=== PATIENT | male | born 1985 | race Caucasian/White ===

== ENCOUNTER 2018-04-22 09:56 | Emergency (ER) | payer OTHER ==
[~2018-04-22 09:56] MED LIST: ISOVUE-370 76%-LOCM 1 ML ONE
[2018-04-22] MEDS ORDERED: Ketorolac Tromethamine 30 MG/ML VIAL ONE (11:12)
--- NOTE | 2018-04-22 11:27 | ULT ---
TESTICULAR ULTRASOUND: DATE: 04/22/18. HISTORY: Right testicular pain and swelling for 1 day. FINDINGS: The testicles demonstrate a normal sonographic appearance bilaterally with homogeneous echotexture. No testicular mass is seen. The right testicle measures 4 cm x 2 cm x 1.2 cm with the left testicle m easuring 4.3 cm x 2.2 cm x 3.2 cm. Doppler evaluation of each testicle with spectral analysis and color flow evaluation does demonstrate arterial flow in each testicle. The epididymes demonstrate a normal sonographic appearance bilaterally. A tiny amount of fluid is seen adjacent to each testicle, which is likely physiologic in origin. There are a few borderline serpiginous anechoic areas seen adjacent to the right scrotum which is in the focal region of patient's pain. Color flow evaluation does demonstrate flow in these tubular str uctures and upon Valsalva maneuver, there is significantly increased asymmetric flow compared to the left side. Findings may represent a right-sided varicocele. IMPRESSION: 1. Questionable small right-sided varicocele. This would be abnormal, and further imaging with CT a bdomen and pelvis is suggested with IV contrast. 2. Normal-appearing bilateral testicles with arterial flow documented in each testicle. POS: [facility] [place]
[2018-04-22 11:35] LABS: #Basophils 0.1 thou/uL (0.0-0.2); #Eosinphils 0.2 thou/uL (0.0-0.7); #Lymphocytes 1.7 thou/uL (1.20-3.40); #Monocytes 0.6 thou/uL (0.11-0.59); #Neutrophils 6.5 thou/uL (1.40-6.50); %Basophils 0.7 % (0.0-1.0); %Eosinophils 2.1 % (0.0-10.0); %Lymphocytes 18.9 % (21.0-51.0); %Monocytes 6.3 % (0.0-10.0); Hemoglobin 15.5 g/dL (14.0-18.0); Mean Corpuscular HGB CONC 34.3 g/dL (32.0-36.0); Mean Corpuscular Hemoglobin 31.6 pg (27.0-31.0); Mean Corpuscular Volume 92.2 fL (78.0-98.0); Mean Platelet Volume 7.4 fL (7.4-10.4); Platelet Count 303 thou/uL (130-400); RBC Distribution Width 11.3 % (11.5-14.5); Red Blood Cell (RBC) Count 4.89 mill/uL (4.70-6.10)
[2018-04-22 11:56] LABS: ALT (SGPT) 33 U/L (8-55); AST (SGOT) 23 U/L (5-34); Albumin 4.4 g/dL (3.5-5.0); Alkaline Phosphatase 120 U/L (40-150); Anion Gap 12 mmol/L (10-20); BUN (Urea Nitrogen) 18 mg/dL (8.9-20.6); Bilirubin, Total 0.4 mg/dL (0.2-1.2); Calc. Creatinine Clearance 0 mL/min (70-130); Calcium 9.2 mg/dL (7.8-10.44); Carbon Dioxide 23 mmol/L (22-29); Chloride 108 mmol/L (98-107); Estimated GFR-MDRD Greater than 90; Globulin 2.9 g/dL (2.4-3.5); Glucose 101 mg/dL (70-105); Potassium 4.2 mmol/L (3.5-5.1); Protein, Total 7.3 g/dL (6.0-8.3); Sodium 139 mmol/L (136-145)
[2018-04-22 12:10] LABS: Bilirubin Negative (Negative); Blood, Urine Negative (Negative); Clarity CLEAR (Clear); Glucose, Urine (Dipstick) Negative (Negative); Leukocyte Negative (Negative); Nitrite Negative (Negative); Protein, Urine (Dipstick) Negative (Neg-Trace); Specific Gravity, Urine 1.026 (1.002-1.036); Urobilinogen 0.2 mg/dL (0.2-1.0); pH, Urine 6.5 (5.0-9.0)
[2018-04-22] MEDS ORDERED: Acetaminophen 500 MG TAB ONE (13:22)
--- NOTE | 2018-04-22 13:36 | CT ---
CT ABDOMEN AND PELVIS WITH IV CONTRAST: Date: 04/22/18 HISTORY: Testicular swelling with onset of symptoms last night. No pain. Pain started this morning on the righ t side of the scrotum. Ultrasound examination questioned the possibility of a right-sided hydrocele. COMPARISON: Noncontrast CT abdomen and pelvis on 09/05/14. FINDINGS: The lung bases, liver, spleen, pancreas, bilateral adrenal glands, kidneys, abdominal aorta, and inco mpletely distended urinary bladder demonstrate a normal CT appearance. The appendix is visualized and normal in caliber. No free fluid, fluid collection, or lymphadenopathy seen in the abdomen or pelvis. No mass is seen wi thin the right aspect of the pelvis. IMPRESSION: No acute findings are seen in the abdomen or pelvis. No mass seen in the right abdomen or pelvis to a ccount for questioned hydrocele on the right. There is no lymphadenopathy. POS: [facility]
== END 2018-04-22 13:46 | disposition home or self-care (01) ==
LOC: ERS 09:56
DX: I86.1 Scrotal varices (principal); Z79.899 Other long term (current) drug therapy
CPT/HCPCS: 74177; 76870; 80053; 81003; 85025; 87086; 93976; 96374; J1885

== ENCOUNTER 2018-08-22 06:29 | Outpatient (CLI) | payer OTHER ==
--- NOTE | 2018-08-22 08:34 | ULT ---
SCROTAL SONOGRAM WITH DUPLEX EVALUATION: Date: 08/22/18 HISTORY: Right scrotal pain. FINDINGS: Right testicle is 4.4 cm and left is 4.2 cm. Each has a normal sonographic appearance with good color and spectral Doppler flow. Small amount of fluid within each side of the scrotum. IMPRESSION: 1. Small bilateral hydroceles. Cause not evident. 2. No evidence of testicular mass or torsion. POS: [facility]
== END 2018-08-22 06:30 | disposition home or self-care (01) ==
LOC: SCSULT 06:29
PROVIDERS: ATTEND Urology
DX: N50.82 Scrotal pain (principal); N43.3 Hydrocele, unspecified
CPT/HCPCS: 76870